=== PATIENT | female | born 1945 | race Caucasian/White ===

== ENCOUNTER 2018-11-20 09:12 | Day surgery (SDC) | payer MEDICARE, BC ==
[~2018-11-20 09:12] MED LIST: Midazolam* 1 MG/ML 2 ML VIAL (2 MG) ONE; fentaNYL* 50 MCG/ML 2 ML VIAL (100 MCG VIAL) ONE
[2018-11-20] MEDS ORDERED: Buffered Lidocaine 1% SYRIN* 1 ML/SYRINGE INTRADERM ONE (11:05)
[2018-11-20] MEDS ORDERED: Cyclopentolate 1% OPTH.SOL* 2 ML BTL ONE (13:43)
[2018-11-20] MEDS ORDERED: Phenylephrine OPHTH SOL 2.5%* 2 ML ONE (13:43)
[2018-11-20] MEDS ORDERED: Povidone Iodine 5% OPTH* 30 ML BTL ONE (13:43)
[2018-11-20] MEDS ORDERED: Lidocaine 1%* 5 ML VIAL ONE (13:43)
[2018-11-20] MEDS ORDERED: Neomycin/Polymy/Dex OPTH.SUSP* MAXITROL 0.1% 5 ML ONE (13:43)
[2018-11-20] MEDS ORDERED: Proparacaine 0.5% OPHTH.SOL* 15 ML BTL ONE (13:43)
[2018-11-20] MEDS ORDERED: Lidocaine 2% EPI 1:200000 MPF*10-20 ML VIAL ONE (13:43)
[2018-11-20] MEDS ORDERED: acetaZOLAMIDE TAB* 250 MG ONE (13:43)
[2018-11-20] MEDS ORDERED: Ketorolac 0.5% OPHTH (NF) 0.5 % 5 ML BTL ONE (13:43)
[2018-11-20 13:45] VITALS: BP 143/67
--- NOTE | 2018-11-20 14:13 | OP ---
OPERATIVE NOTE: DATE OF OPERATION: 11/20/18 DATE OF : 43 SURGEON: Iggy Sorto MD. PREOPERATIVE DIAGNOSIS: Cataract, right eye. POSTOPERATIVE DIAGNOSIS: Cataract, right eye. OPERATIVE PROCEDURE: Extracapsular cataract extraction with intraocular lens implant right eye. PROCEDURE: The patient was brought to the operating room after being given 1/2% Alcaine with epineph rine drops in the preoperative area. The eye was prepped and draped in the usual sterile fashion. S terile drape and eyelid speculum were placed. Again, topical 1/2% Alcaine with epinephrine was given . A paracentesis incision was made at the 9 o'clock position with the No.75 blade. Clear cornea inc ision 2.2 x 2.2-mm was created at the 12 o'clock position starting at the anterior limbus using the 2 .2-mm keratome. The anterior chamber was irrigated with 0.4 mL of 1% non-preservative intracameral l idocaine and filled with DisCoVisc. A capsulorrhexis was completed using the cystotome and the Utrat a forceps. Hydrodissection was performed with balanced salt solution. The lens nucleus was removed w ith the Phacoemulsification handpiece without incident. Cortex was removed with the irrigation-aspir ation handpiece. The capsular bag was re-inflated using DisCoVisc and an SN60WF 18.5 implant was ins erted with the shooter. The irrigation-aspiration handpiece was used to remove all residual DisCoVis c. The eye was refilled with balanced salt solution and the wound checked and found to be watertight . Topical Maxitrol drops were given. [id number]/[facility] #: [id number]
[2018-11-21] MEDS ORDERED: Acetaminophen TAB* 325 MG PO PRN (05:00)
== END 2018-11-20 11:35 | disposition home or self-care (01) ==
LOC: OREAST 09:12
PROVIDERS: ATTEND Specialist
DX: H25.811 Combined forms of age-related cataract, right eye (principal); H35.372 Puckering of macula, left eye; H04.123 Dry eye syndrome of bilateral lacrimal glands; I10 Essential (primary) hypertension; E78.00 Pure hypercholesterolemia, unspecified; Z85.42 Personal history of malignant neoplasm of other parts of uterus; E03.9 Hypothyroidism, unspecified; J45.909 Unspecified asthma, uncomplicated
CPT/HCPCS: A9270-GY; J2250; J3010; V2632

== ENCOUNTER 2018-11-27 09:41 | Day surgery (SDC) | payer MEDICARE, BC ==
[2018-11-27] MEDS ORDERED: Buffered Lidocaine 1% SYRIN* 1 ML/SYRINGE INTRADERM ONE (10:24)
[2018-11-27] MEDS ORDERED: Midazolam* 1 MG/ML 2 ML VIAL (2 MG) ONE (12:08)
[2018-11-27 13:07] VITALS: BP 174/83
[2018-11-27] MEDS ORDERED: Proparacaine 0.5% OPHTH.SOL* 15 ML BTL ONE (13:18)
[2018-11-27] MEDS ORDERED: Povidone Iodine 5% OPTH* 30 ML BTL ONE (13:18)
[2018-11-27] MEDS ORDERED: Lidocaine 2% EPI 1:200000 MPF*10-20 ML VIAL ONE (13:18)
[2018-11-27] MEDS ORDERED: Cyclopentolate 1% OPTH.SOL* 2 ML BTL ONE (13:18)
[2018-11-27] MEDS ORDERED: Lidocaine 1%* 5 ML VIAL ONE (13:18)
[2018-11-27] MEDS ORDERED: Ketorolac 0.5% OPHTH (NF) 0.5 % 5 ML BTL ONE (13:18)
[2018-11-27] MEDS ORDERED: Neomycin/Polymy/Dex OPTH.SUSP* MAXITROL 0.1% 5 ML ONE (13:18)
[2018-11-27] MEDS ORDERED: Phenylephrine OPHTH SOL 2.5%* 2 ML ONE (13:18)
[2018-11-27] MEDS ORDERED: acetaZOLAMIDE TAB* 250 MG ONE (13:18)
--- NOTE | 2018-11-27 14:23 | OP ---
OPERATIVE NOTE: DATE OF OPERATION: 11/27/18. DATE OF : 43. SURGEON: Iggy Sorto M.D. PREOPERATIVE DIAGNOSIS: Cataract, left eye. POSTOPERATIVE DIAGNOSIS: Cataract, left eye. OPERATIVE PROCEDURE: Extracapsular cataract extraction with intraocular lens implant left eye. PROCEDURE: The patient was brought to the operating room after being given 1/2% Alcaine with epineph rine drops in the preoperative area. The eye was prepped and draped in the usual sterile fashion. S terile drape and eyelid speculum were placed. Again, topical 1/2% Alcaine with epinephrine was given . A paracentesis incision was made at the 3 o'clock position with the No.75 blade. Clear cornea inc ision 2.2 x 2.2-mm was created at the 6 o'clock position starting at the anterior limbus using the 2. 2-mm keratome. The anterior chamber was irrigated with 0.4 mL of 1% non-preservative intracameral li docaine and filled with DisCoVisc. A capsulorrhexis was completed using the cystotome and the Utrata forceps. Hydrodissection was performed with balanced salt solution. The lens nucleus was removed wi th the Phacoemulsification handpiece without incident. Cortex was removed with the irrigation-aspira tion handpiece. The capsular bag was re-inflated using DisCoVisc and an [id number] 18 implant was insert ed with the shooter. The irrigation-aspiration handpiece was used to remove all residual DisCoVisc. The eye was refilled with balanced salt solution and the wound checked and found to be watertight. Topical Maxitrol drops were given. [id number]/[facility] #: [id number]
[2018-11-28] MEDS ORDERED: Acetaminophen TAB* 325 MG PO PRN (05:00)
== END 2018-11-27 13:03 | disposition home or self-care (01) ==
LOC: OREAST 09:41
PROVIDERS: ATTEND Specialist
DX: H25.812 Combined forms of age-related cataract, left eye (principal); H35.372 Puckering of macula, left eye; H04.123 Dry eye syndrome of bilateral lacrimal glands; I10 Essential (primary) hypertension; E78.00 Pure hypercholesterolemia, unspecified; J45.909 Unspecified asthma, uncomplicated; E03.9 Hypothyroidism, unspecified
CPT/HCPCS: A9270-GY; J2250; V2632

== ENCOUNTER 2018-12-18 03:31 | Emergency (ER) | payer MEDICARE, BC ==
--- NOTE | 2018-12-18 03:57 | ED ---
Palpitations / Dysrhythmia - HPI Summary HPI Summary: This patient is a 73 year old F presenting to [facility] with a chief complaint of palpitations described as "flip flopping" since 00:30 today while watching TV. The patient rates the pain 0/10 in severity. Symptoms aggravated by nothing. Symptoms alleviated by nothing. Patient reports fast heart rate and irregular rhythm. Patient denies chest pain. 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 Patient has cardiac hx. Patient has hx HTN since she was 29 years old, and sinus tachycardia 20 years ago after which she had cardiac catheterization done. Patient had Holter monitor 22 years ago which showed a couple of PACs. Patient has hx hypercholesterolemia. Patient recently was told she is insulin resistant but she denies hx diabetes. Patient denies hx of A- fib. Patient last ate at 00:00 today. - History of Current Complaint Chief Complaint: EDDysrhythmPalp Time Seen by Provider: 12/18/18 03:45 Hx Obtained From: Patient Onset/Duration: Sudden Onset, Lasting Hours - 12:30 today, Still Present Timing: Constant Severity Currently: None Character: Fluttering Aggravating: Nothing Alleviating: Nothing Associated Signs & Symptoms: Negative - chest pain - Risk Factors Cardiac: Hypertension - Allergy/Home Medications Allergies/Adverse Reactions: Allergies Allergy/AdvReac Type Severity Reaction Status Date / Time Iodinated Contrast- Oral and Allergy Hives Verified 12/18/18 03:48 IV Dye metronidazole [From Flagyl] Allergy Hives Verified 12/18/18 03:49 morphine Allergy Hives Verified 12/18/18 03:49 SHANTEL Inhibitors AdvReac Coughing Verified 12/18/18 03:48 salmon AdvReac Vomiting Uncoded 12/18/18 03:49 PMH/Surg Hx/FS Hx/Imm Hx Previously Healthy: No Endocrine/Hematology History: Denies: Hx Diabetes Cardiovascular History: Reports: Hx Coronary Artery Disease - HAD A CARDIAC CATH YEARS AGO WAS TACK[place] NO ISSUES SINCE, Hx Hypercholesterolemia, Hx Hypertension Denies: Hx Atrial Fibrillation, Hx Pacemaker/ICD Respiratory History: Denies: Hx Asthma History: Reports: Hx Kidney Infection - 40 YEARS AGO Sensory History: Reports: Hx Cataracts, Hx Contacts or Glasses - GLASSES 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 Opthamlomology History: Reports: Hx Cataracts, Hx Contacts or Glasses - GLASSES Psychiatric History: Denies: Hx Panic Disorder - Surgical History Surgery Procedure, Year, and Place: HYSTERECTOMY,TUBAL LIGATION Hx Anesthesia Reactions: No Infectious Disease History: No Infectious Disease History: Denies: Traveled Outside the [place] in Last 30 Days - Family History Known Family History: Positive: Cardiac Disease, Hypertension - Social History Alcohol Use: Occasionally Hx Substance Use: No Substance Use Type: Reports: None Hx Tobacco Use: No Smoking Status (MU): Never Smoked Tobacco Have You Smoked in the Last Year: No Review of Systems Negative: Fever Positive: Palpitations, Other - fast heart rate and irregular rhythm. Negative : Chest Pain All Other Systems Reviewed And Are Negative: Yes Physical Exam - Summary Physical Exam Summary: VITAL SIGNS: Reviewed. GENERAL: Patient is a well-developed and nourished FEMALE who is lying comfortable in the stretcher. Patient is not in any acute respiratory distress. HEAD AND FACE: No signs of trauma. No ecchymosis, hematomas or skull depressions. No sinus tenderness. EYES: PERRLA, EOMI x 2, No injected conjunctiva, no nystagmus. EARS: Hearing grossly intact. Ear canals and tympanic membranes are within normal limits. MOUTH: Oropharynx within normal limits. NECK: Supple, trachea is midline, no adenopathy, no JVD, no carotid bruit, no c- spine tenderness, neck with full ROM CHEST: Symmetric, no tenderness at palpation LUNGS: Clear to auscultation bilaterally. No wheezing or crackles. CVS: irregular tachycardia, S1 and S2 present, no murmurs or gallops appreciated. ABDOMEN: Soft, non-tender. No signs of distention. No rebound no guarding, and no masses palpated. Bowel sounds are normal. EXTREMITIES: FROM in all major joints, no edema, no cyanosis or clubbing. NEURO: Alert and oriented x 3. No acute neurological deficits. Speech is normal and follows commands. SKIN: Dry and warm Triage Information Reviewed: Yes Vital Signs On Initial Exam: Initial Vitals Temp Pulse Resp BP Pulse Ox 97.4 F 118 16 180/124 98 12/18/18 03:32 12/18/18 03:32 12/18/18 03:32 12/18/18 03:32 12/18/18 03:32 Vital Signs Reviewed: Yes Procedures - Procedure Summary Procedure Summary: Moderate sedation procedure note: Moderate sedation protocol implemented. Patient gave informed consent. Patient was given Versed 2.5 IV and Fentanyl 15. Noderate sedation accomplished for procedure. There was no complications, no reversal agent was used. Procedure completed in 15 minutes. Vital signs stable throughout procedure. Cardioversion procedure note: Cardioversion done under moderate sedation. Patient was cardioverted using synchronized current of 100J. Patient was converted from A-flutter to sinus rhythm in 1 attempt. Diagnostics - Vital Signs Vital Signs Temp Pulse Resp BP Pulse Ox 12/18/18 03:32 97.4 F 118 16 180/124 98 - Laboratory Result Diagrams: 12/18/18 04:21 12/18/18 04:21 Lab Statement: Any lab studies that have been ordered have been reviewed, and results considered in the medical decision making process. - EKG 0343 Cardiac Rate: Tachycardia - 115 BPM Summary of EKG Findings: a fib/flutter at 115 BPM 0442 Cardiac Rate: NL - 79 BPM EKG Rhythm: Sinus Rhythm Summary of EKG Findings: post cardioversion, sinus rhythm, 79 BPM Course/Dx - Course Course Of Treatment: This patient is a 73 year old F presenting to [facility] with a chief complaint of palpitations since 3 hours ago. The CC is described as "flip flopping" heart palpitations. The patient rates the pain 0/10 in severity. Symptoms aggravated by nothing. Symptoms alleviated by nothing. The patient states she was watching the news when the palpitations suddenly occurred at 0030 today. 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 Patient reports she took blood pressure medication around 0130 before she came into ED and that her symptoms are resolving. Patient denies pain. She notes she has had previous PACs, is insulin resistant, has had HTN since age 29, sinus tachycardia 20 years ago, HLD, and cardiac catheterization done 20 years ago. Patient denies hx of A-fib. Physical Exam shows irregular tachycardia. EKG results at 0343: a fib/flutter at 115 BPM. Lab results show potassium 3.4, creatinine 0.97, BUN/creatinine ratio 23.7, and glucose 217. Moderate sedation procedure note: Moderate sedation protocol implemented. Patient gave informed consent. Patient was given Versed 2.5 IV and Fentanyl 15. Noderate sedation accomplished for procedure. There was no complications, no reversal agent was used. Procedure completed in 15 minutes. Vital signs stable throughout procedure. Cardioversion procedure note: Cardioversion done under moderate sedation. Patient was cardioverted using synchronized current of 100J. Patient was converted from A-flutter to sinus rhythm in 1 attempt. EKG results at 0442: post cardioversion, sinus rhythm, 79 BPM. During ED course, the patient was given IV fluids. Patient will be discharged home with instructions to follow up with her manager behavioral in 1 day and to return to the Emergency Department for new or worsening symptoms. She understands and is agreeable to discharge. - Diagnoses Provider Diagnoses: Atrial flutter Discharge - Sign-Out/Discharge Documenting (check all that apply): Patient Departure - discharge Patient Received Moderate/Deep Sedation with Procedure: Yes - Discharge Plan Condition: Stable Disposition: HOME Patient Education Materials: Atrial Flutter (ED) Forms: *Work Release Referrals: Staci Yip MD [Medical Doctor] - 1 Day Additional Instructions: Follow up with your manager behavioral in 1 day. Return to the Emergency Department for new or worsening symptoms. - Attestation Statements Document Initiated by Scribe: Yes Documenting Scribe: Maribel Phillip Provider For Whom Scribe is Documenting (Include Credential): Albin Hardin MD Scribe Attestation: Maribel Sorto, scribed for Albin Hardin MD on 12/18/18 at 0620. Status of Scribe Document: Ready
[2018-12-18] MEDS ORDERED: Midazolam* 1 MG/ML 5 ML VIAL (5 MG) IV SLOW PU ONE (04:02)
[2018-12-18] MEDS ORDERED: fentaNYL* 50 MCG/ML 2 ML VIAL (100 MCG VIAL) IV SLOW PU ONE (04:03)
[2018-12-18] MEDS ORDERED: NS 0.9% 1000 ML** 400 ML IV ONE (04:15)
[2018-12-18] MEDS ORDERED: Naloxone* 0.4 MG/ML 1 ML VIAL ONE (04:24)
[2018-12-18] MEDS ORDERED: Flumazenil* 0.1 MG/ML 5 ML MDV ONE (04:25)
[2018-12-18 04:35] LABS: Activated Partial Thrombo Time 33.2 seconds (26.0-38.0); INR 0.95 (0.82-1.09)
[2018-12-18 04:44] LABS: Albumin 4.4 g/dL (3.2-5.2); Albumin/Globulin Ratio 1.8 (1-3); BUN/Creatinine Ratio 23.7 (8-20); Calcium 9.9 mg/dL (8.6-10.3); EGFR African American 67.9 (>60); EGFR Non-African American 56.1 (>60); Globulin 2.4 g/dL (2-4); Potassium 3.4 mmol/L (3.5-5.0); Total Bilirubin 0.5 mg/dL (0.2-1.0); Total Protein 6.8 g/dL (6.4-8.9)
[2018-12-18] MEDS ORDERED: Potassium Chlor TAB* 20 MEQ TAB.ER PO ONE (04:44)
[2018-12-18 04:46] LABS: Troponin I 0.01 ng/mL (<0.04)
[2018-12-18 05:14] LABS: ABS Eosinophils 0.2 10^3/ul (0-0.6); ABS Lymphocytes 1.9 10^3/ul (1.0-4.8); ABS Monocytes 0.7 10^3/ul (0-0.8); ABS Neutrophils 3.9 10^3/ul (1.5-7.7); Eosinophil % 3.3 %; Hematocrit 37 % (35-47); Hemoglobin 12.2 g/dL (12.0-16.0); Mean Corpuscular HGB Conc 34 g/dL (31-36); Mean Corpuscular Hemoglobin 31 pg (27-31); Mean Corpuscular Volume 93 fL (80-97); Mean Platelet Volume 8.2 fL (7.4-10.4); Platelet Count 213 10^3/uL (150-450); Red Blood Count 3.93 10^6 /uL (3.70-4.87); Red Cell Distribution Width 16 % (10-15); White Blood Count 6.7 10^3/uL (3.5-10.8)
[2018-12-18 05:38] LABS: TSH (Thyroid Stimulating Horm) 2.89 mcIU/mL (0.34-5.60)
[2018-12-18 07:41] VITALS: BP 141/83
== END 2018-12-18 07:41 | disposition home or self-care (01) ==
LOC: ED 03:31
DX: I48.92 Unspecified atrial flutter (principal); Z88.8 Allergy status to other drugs, medicaments and biological substances; Z88.1 Allergy status to other antibiotic agents; Z91.041 Radiographic dye allergy status; Z88.5 Allergy status to narcotic agent; Z91.013 Allergy to seafood
CPT/HCPCS: 36415; 80053; 83735; 84443; 84484; 85025; 85610; 85730; 92960; 93005; 99156; 99285; J2250; J2310; J3010